=== PATIENT | female | born 1970 | race Caucasian/White ===

== ENCOUNTER → 2018-05-05 14:19 | Outpatient (CLI) | payer BC, SELFPAY ==
--- NOTE | 2018-05-05 14:31 | US_ITS ---
US thyroid HISTORY: ITS.REASON: THYROMEGALY ORDERING PHYSICIAN: Charlene Johnson PATIENT AGE: 47 years Comparison: None FINDINGS: The right lobe is 5.2 x 2.1 x 2.8 cm. Isoechoic solid-appearing nodule upper pole 15 mm. Slightly hypoechoic nodule mid polar region at 9 mm x 10 mm The left lobe is 6.5 x 2.6 x 2.4 cm. Hypoechoic nodule upper pole and 9 mm. 14 mm isoechoic nodule midpole. The isthmus is thickened at 6 mm. IMPRESSION: Thyromegaly bilateral thyroid nodules which are low level suspicion for malignancy. Suggest 6 month follow-up
== END ==
PROVIDERS: PCP Nurse Practitioner Family; Visit Provider Nurse Practitioner Family
DX: E01.0 Iodine-deficiency related diffuse (endemic) goiter (principal)
CPT/HCPCS: 76536

== ENCOUNTER → 2018-06-16 15:15 | Outpatient (CLI) | payer BC, SELFPAY ==
--- NOTE | 2018-06-16 15:19 | CT_ITS ---
CT soft tissue neck wo con INDICATION: ITS.REASON: NECK SWELLING ORDERING PHYSICIAN: Virgilio Swann MD PATIENT AGE: 47 years COMPARISON: None TECHNIQUE: Axial images are obtained without contrast. Sagittal and coronal reformatted images are reviewed as well. All CT scans at the facility use one or more dose reduction, viz: automated exposure control, ma/kV adjustment per patient size (including targeted exams where dose is matched to indication, i.e. head), or iterative reconstruction technique. FINDINGS: The nasopharynx has an unremarkable appearance. Artifact is present patient's dental work. The epiglottis, glottic, and subglottic region are unremarkable. The thyroid gland is somewhat prominent with heterogeneous echogenicity. The patient has known thyroid nodules as seen on recent ultrasound. Scattered small lymph nodes are present in the with no dominant adenopathy. No mass or abnormal fluid collection. No sinus air-fluid level or mastoid effusion. Mild degenerative disc disease is present at C6-C7. The salivary glands have an unremarkable appearance IMPRESSION: 1. Thyromegaly. 2. Scattered small cervical lymph nodes. 3. Otherwise negative CT of the neck without contrast
== END ==
PROVIDERS: PCP Family Medicine; Visit Provider Family Medicine
DX: R22.1 Localized swelling, mass and lump, neck (principal)
CPT/HCPCS: 70490

== ENCOUNTER → 2018-11-01 09:48 | Outpatient (CLI) | payer BC, SELFPAY ==
[2018-11-01 15:25] LABS: Thyroid Stimulating Hormone 0.51 uIU/ml (0.358-3.740)
[2018-11-02 15:06] LABS: Thyroid Peroxidase Antibodies 9 IU/mL (0-34)
[2018-11-03 09:20] LABS: Thyroglobulin Level <1.0 IU/mL (0.0-0.9)
== END ==
PROVIDERS: Visit Provider Nurse Practitioner Psychiatric/Mental Health
DX: E07.9 Disorder of thyroid, unspecified (principal)
CPT/HCPCS: 36415; 84443; 86376; 86800